=== PATIENT | female | born 1945 | race Caucasian/White ===

== ENCOUNTER → 2016-09-11 | Day surgery (SDC) | payer MEDICARE, OTHER | END | disposition home or self-care (01) | LOC: FAS 09-09 08:45 | DX: Z12.11 Encounter for screening for malignant neoplasm of colon (principal); K57.90 Diverticulosis of intestine, part unspecified, without perforation or abscess without bleeding; E78.5 Hyperlipidemia, unspecified; Z86.010 Personal history of colon polyps; Z83.49 Family history of other endocrine, nutritional and metabolic diseases; Z82.49 Family history of ischemic heart disease and other diseases of the circulatory system; Z80.9 Family history of malignant neoplasm, unspecified; Z83.3 Family history of diabetes mellitus; Z79.899 Other long term (current) drug therapy; Z98.890 Other specified postprocedural states | CPT/HCPCS: J2704 ==

== ENCOUNTER 2021-09-19 13:10 | Emergency (ER) | payer MEDICARE, OTHER ==
[2021-09-19 15:13] LABS: BASOPHIL 0.5 % (0-2); HCT 43.3 % (37.0-47.0); HGB 13.9 g/dl (12.5-16.0); LYMPHOCYTE 23.8 % (15-48); MCH 31.2 pg (25.0-31.0); MCHC 32.1 g/dL (32.0-36.0); MCV 97.3 fL (78.0-100.0); MONOCYTE 8.7 % (0-12); MPV 12.1 fL (6.0-9.5); NEUTROPHIL 64.8 % (41-80); NRBC 0; PLT 133 K/uL (150-400); RBC 4.45 M/uL (4.20-5.40); RDW 13.1 % (11.5-14.0)
[2021-09-19 15:18] LABS: INR 1.01 (0.9-1.2); PROTHROMBIN TIME 12.7 SECONDS (11.8-13.4)
[2021-09-19 15:26] LABS: ALBUMIN 3.8 g/dL (3.4-5.0); CREATININE 0.56 mg/dL (0.51-0.95); GLOBULIN (CALCULATION) 2.9 g/dL; POTASSIUM 3.6 mmol/L (3.5-5.1); TOTAL PROTEIN 6.7 g/dL (6.4-8.2)
== END 2021-09-19 16:30 | disposition home or self-care (01) ==
LOC: FER 13:10
PROVIDERS: Emergency Medicine
DX: G43.809 Other migraine, not intractable, without status migrainosus (principal)
CPT/HCPCS: 36415; 70450; 71045; 80053; 84484; 85025; 85610; 85730; 93005